=== PATIENT | male | born 1995 | race Hispanic/Latino ===

== ENCOUNTER 2025-01-15 17:32 | Emergency (ER) | payer SELFPAY ==
[2025-01-15 17:34] VITALS: BP 119/81
--- NOTE | 2025-01-15 17:41 | ED.GENMED ---
History of Present Illness
General
Chief Complaint: Abdominal Symptoms
Time Seen by Provider: 01/15/25 17:41
History of Present Illness
History of Present Illness:
TIME OF INITIAL ENCOUNTER: 5:45 PM
HPI: The patient presents with 2 days of left lower quadrant pain. This is associated with bloody diarrhea. No definite fevers. He was seen by the [facility] and sent here for further evaluation. [facility] was used to obtain the
history.
EXAM:
GENERAL: Well appearing in no distress
HEENT: Moist oral mucosa
CARDIOVASCULAR: No murmurs, normal heart rate, regular rhythm, No chest wall tenderness
PULMONARY: No respiratory distress, breath sounds are clear and equal
ABDOMEN: Soft with no peritoneal signs, LLQ tenderness
NEUROLOGIC: Excellent strength all extremities, no coordination deficits
PSYCHIATRIC: Appropriate mental status, normal insight and judgement
EXTREMITIES: Nontender, no edema, moves all extremities equally
SKIN: No rash, no lesions
NUMBER AND COMPLEXITY OF PROBLEMS ADDRESSED AT THE ENCOUNTER
� Chronic conditions affecting care: Denies any significant past medical history
� Acute Exacerbation and/or Progression of Chronic Illness: This is an acute problem
� Differential Diagnosis includes: Diverticulitis, colitis, viral syndrome, mesenteric adenitis
AMOUNT AND/OR COMPLEXITY OF DATA TO BE REVIEWED AND ANALYZED
� I performed an independent evaluation of and my interpretation is:
EKG:
CT: I personally reviewed CT�no evidence of colitis or diverticulitis
X-rays:
Laboratory Studies: CBC unremarkable, chemistries unremarkable, CRP less than 5
Other:
� Review of other/old records: No old records available for review in [email or web address] however I did briefly review the notes from [facility] that he has with him
� Clinical information was obtained by an independent historian: None needed, of note [facility] was used
� Prescriptions/Medications Considered but not given:
� Further testing considered but not performed:
RISK OF COMPLICATIONS AND/OR MORBIDITY OR MORTALITY OF PATIENT MANAGEMENT
� Social determinants of health affecting care: Lives at home, Croatian-speaking but does speak some Luxembourgish
� Discussion with other providers: None needed
� Escalation of care including admission/observation vs risk of discharge considered: The patient's blood work is relatively unremarkable. CT imaging obtained. He only has minimal tenderness on exam.
ANY OTHER UPDATES:
I reassessed the patient prior to discharge and use the [facility] again. Will give Toradol here in recommended that he could take [id number] NSAID. He did not have any evidence of bloody diarrhea here�he had formed brown stool. Labs and
workup unremarkable including normal CT.
Phy Exam
Physical Exam
Physical Exam:
See HPI
Course
Orders/Labs/Results
Orders:
Orders
01/15/25 17:51
CT Abd/pelvis W Iv Cont Urgent
Comment:
Reason For Exam: LLQ tender, some bloody stool
0.9% Sodium Chloride 1000 ml [Nss] 1,000 ml IV BOLUS
01/15/25 18:21
CRP [C-Reactive Protein] Urgent
Complete Blood Count/With Diff Urgent
Comprehensive Metabolic Panel Urgent
01/15/25 20:42
Ketorolac [Toradol] 15 mg IV NOW STA
01/15/25 18:21
01/15/25 18:21
Vital Signs
Initial and Last Documented VS:
Initial Vital Signs
Temp Pulse Resp BP Pulse Ox
36.8 C 80 16 119/81 100
01/15/25 17:34 01/15/25 17:34 01/15/25 17:34 01/15/25 17:34 01/15/25 17:34
Last Documented Vital Signs
Temp Pulse Resp BP Pulse Ox
36.8 C 82 17 122/86 99
01/15/25 17:34 01/15/25 20:10 01/15/25 20:10 01/15/25 20:10 01/15/25 20:10
*Critical Care Note
Total Time (30-74mins, 75-104mins- exclusive of procedures): Not Applicable
ED Attending Note
-
Portions of this chart may have been created with voice recognition software.� Occasional wrong word or��sound alike� substitutions may have occurred due to the inherent limitations of voice recognition software.
Discharge Plan
Departure
Patient Disposition: Home (Routine Discharge)
Date of Disposition: 01/15/25
Time of Disposition: 20:41
Patient with high blood pressure during this ER visit?: Yes
Discharge Problem:
Abdominal pain
Instructions: Abdominal Pain, BLOOD PRESSURE
Referrals:
Kena Randolph DPM [Family Provider] -
Activity Restrictions/Additional Instructions:
Basic blood work is normal. Inflammatory markers are normal. CAT scan showed no abnormality. We gave a dose of Toradol. Return here if worse or other concerns. Consider taking Motrin at home.
Interventions
Interventions:
*Risk Screen - Suicide Last Done: 01/15/25 18:14
*General Assessment Last Done: 01/15/25 18:14
*Neglect/Abuse Screening Last Done: 01/15/25 18:14
*ED- Fall Risk Assessment Last Done: 01/15/25 18:13
*ED COVID-19 Vaccine History Last Done: 01/15/25 18:13
*Nursing Disposition Last Done: 01/15/25 21:22
TF-Riqcab-[place] Assessment Last Done: 01/15/25 18:15
Discharge Date and Time
Discharge Date/Time: 01/15/25 21:22
Print Language: OMANI
[2025-01-15] MEDS: NSS 1000 IV (18:23)
[2025-01-15 18:26] VITALS: BP 127/85
[2025-01-15 18:28] LABS: % Basophils 0.5 % (0-2); % Eosinophils 2.1 % (0-6); % Immature Granulocytes 0.2 % (0-0.5); % Lymphocytes 31.6 % (20.5-51.1); % Monocytes 7.9 % (1.7-9.3); % Neutrophils 57.7 % (42.2-75.2); Absolute Eosinophils 0.1 10^3/uL (0-0.7); Absolute Lymphocytes 1.9 10^3/uL (1.2-3.4); Absolute Monocytes 0.5 10^3/uL (0.1-0.6); Absolute Neutrophils 3.4 10^3/uL (1.4-6.5); Hematocrit 45.2 % (39.0-52.0); Hemoglobin 15.7 g/dL (13.0-18.0); Mean Corp Hgb Conc. 34.7 g/dL (33.0-37.0); Mean Corpuscular Hgb 28.8 pg (27.0-31.0); Mean Corpuscular Volume 82.9 fL (80.0-94.0); Mean Platelet Volume 10.3 fL (7.4-10.4); Nucleated Red Blood Cells % 0 % (-); Platelet Count 216 10^3/uL (130-400); Red Blood Cell Count 5.45 10^6/uL (4.70-6.10); Red Cell Dist. Width 11.9 % (11.5-14.5); White Blood Cell Count 5.9 10^3/uL (4.8-10.8)
[2025-01-15 18:43] LABS: ALT (SGPT) 46 U/L (0-50); AST (SGOT) 32 U/L (17-59); Albumin 4.7 g/dl (3.5-5.0); Alkaline Phosphatase 106 U/L (38-126); Blood Urea Nitrogen 19 mg/dl (9-20); Calcium 9.5 mg/dl (8.4-10.2); Carbon Dioxide 27 mmol/L (22-30); Chloride 100 mmol/L (98-107); Estimated Creatinine Clearance > 125 ml/min; Glucose 95 mg/dl (70-99); Sodium 137 mmol/L (135-145); Total Bilirubin 0.8 mg/dl (0.2-1.3); Total Protein 7.3 g/dl (6.3-8.2); eGFR > 60.00
[2025-01-15 18:48] LABS: C-Reactive Protein < 5.00 mg/L (0.0-10.00)
[2025-01-15 20:10] VITALS: BP 122/86
[2025-01-15] MEDS: TORADOL 15 MG IV (20:59)
== END 2025-01-15 21:22 | disposition home or self-care (01) ==
LOC: EMR 17:32
PROVIDERS: EMERGENCY PHYSICIAN Emergency Medicine; FAMILY PHYSICIAN Podiatrist Foot & Ankle Surgery
DX: R10.32 Left lower quadrant pain (principal); R19.7 Diarrhea, unspecified
CPT/HCPCS: 96374; 96361; 99284; 74177; 80053; 85025; 86140; Q9967